=== PATIENT | male | born 1960 | race Caucasian/White ===

== ENCOUNTER 2020-10-17 15:54 | Emergency (ER) | payer BC ==
[~2020-10-17] VITALS: Ht 180.3 cm; Wt 102.1 kg
[2020-10-17 16:00] VITALS: BP 112/73
[2020-10-17] MEDS ORDERED: OFLO5DRO5 RIGHT EAR (16:01)
== END 2020-10-17 16:28 | disposition home or self-care (01) ==
LOC: ER 15:58
DX: H60.91 Unspecified otitis externa, right ear (principal)